=== PATIENT | female | born 1995 | race Asian ===

== ENCOUNTER 2019-04-26 13:21 | Emergency (ER) | payer OTHER ==
[~2019-04-26] VITALS: Ht 162.6 cm; Wt 841.4 kg
[2019-04-26 14:46] VITALS: BP 125/76; TEMP 98.1
== END 2019-04-26 14:53 | disposition home or self-care (01) ==
LOC: ED 13:21
DX: O20.0 Threatened abortion (principal); Z3A.01 Less than 8 weeks gestation of pregnancy
CPT/HCPCS: 84702; 99284